=== PATIENT | female | born 1995 | race Caucasian/White ===

== ENCOUNTER 2019-09-28 16:45 | Emergency (ER) | payer MEDICARE, MEDICAID ==
[~2019-09-28] VITALS: Ht 160 cm; Wt 87.5 kg
[~2019-09-28 16:45] MED LIST: ALBU8.5H6; CYCL-331; FLUT1DIS3; GABA-585; HYDR-923; MONT10TA80; NARA1TAB; NORG1TAB6; PRED20TA PO; PROP20TA
[2019-09-28 17:11] VITALS: BP 113/79
[2019-09-28 18:13] LABS: BILIRUBIN,URINE NEG (NEG); CLARITY,URINE CLEAR; COLOR,URINE YELLOW; GLUCOSE,URINE NEG (NEG); NITRITE,URINE NEG (NEG); UROBILINOGEN,URINE 0.2 mg/dL (0.2 mg/dL)
[2019-09-28 18:14] LABS: BACTERIA,URINE MOD /HPF (0-FEW); HYALINE CASTS, URINE OCC /HPF; SQUAMOUS EPITHELIAL CELL,UR FEW /LPF; WBC,URINE 20-40 /HPF (0-4)
[2019-09-28] MEDS ORDERED: SULF1TAB24 PO (18:22)
--- NOTE | 2019-09-28 18:24 | PHYS DOC ---
Past History Past Medical History: Other Additional Past Medical Histor: [id number] DISEASE Past Surgical History: Cholecystectomy, Other Additional Past Surgical Histo: BILAT FOOT SURGERIES Smoking: Non-smoker Alcohol Use: Rarely Drug Use: None Adult General Chief Complaint Chief Complaint: BACK PAIN OR INJURY [facility] HPI Patient is a 24-year-old female presenting with back pain, onset about 3 days ago she does have a history of UTIs in the past she also lifted her son the other day and she was worried that I could increased her pain. No bowel or bladder incontinence no lower extremity numbness weakness or tingling. Pain is dull slowly worsening with time no relief with her multiple agents including hydrocodone and Flexeril Review of Systems Review of Systems Constitutional: Denies fever or chills [] Eyes: Denies change in visual acuity, redness, or eye pain [] HENT: Denies nasal congestion or sore throat [] Respiratory: Denies cough or shortness of breath [] Cardiovascular: No additional information not addressed in HPI [] GI: D Integument: Denies rash or skin lesions [] Neurologic: Denies headache, focal weakness or sensory changes [] Endocrine: Denies polyuria or polydipsia [] All other systems were reviewed and found to be within normal limits, except as documented in this note. Allergies Allergies Allergies Coded Allergies Type Severity Reaction Last Updated Verified duloxetine Allergy Severe "seizures" 06/14/15 Yes adhesive Allergy Intermediate rash 06/14/15 Yes cat dander Allergy Intermediate "I tested positive on an allergy test." 06/14/15 Yes dog dander Allergy Intermediate "I tested positive on an allergy test." 06/14/15 Yes meloxicam Allergy Intermediate "gives me bad migraines" 06/14/15 Yes Uncoded Allergies Type Severity Reaction Last Updated Verified dust Allergy Intermediate "I tested positive on an allergy test." 06/14/15 Physical Exam Physical Exam Constitutional: Well developed, well nourished, no acute distress, non-toxic appearance. [] HENT: Normocephalic, atraumatic, bilateral external ears normal, oropharynx moist, no oral exudates, nose normal. [] Eyes: PERRLA, EOMI, conjunctiva normal, no discharge. [] Neck: Normal range of motion, no tenderness, supple, no stridor. [] Cardiovascular:Heart rate regular rhythm, no murmur [] Lungs & Thorax: Bilateral breath sounds clear to auscultation [] Abdomen: Bowel sounds normal, soft, no tenderness, no masses, no pulsatile masses. [] Skin: Warm, dry, no erythema, no rash. [] Back: No tenderness, bilateral CVA tenderness Extremities: No tenderness, no cyanosis, no clubbing, ROM intact, no edema. [] Neurologic: Alert and oriented X 3, normal motor function, normal sensory function, no focal deficits noted. [] Psychologic: Affect normal, judgement normal, mood normal. [] Current Patient Data Vital Signs Vital Signs Date Time Temp Pulse Resp B/P (MAP) Pulse Ox O2 Delivery O2 Flow Rate FiO2 09/28/19 17:11 97.9 74 18 99 Room Air Lab Results Laboratory Tests Test 09/28/19 17:37 09/28/19 17:40 Urine Collection Type U cath Urine Color Yellow Urine Clarity Clear Urine pH 5.5 Urine Specific [place] <=1.005 Urine Protein Neg (NEG-TRACE) Urine Glucose (UA) Neg mg/dL (NEG) Urine Ketones (Stick) Neg mg/dL (NEG) Urine Blood Mod (NEG) Urine Nitrite Neg (NEG) Urine Bilirubin Neg (NEG) Urine Urobilinogen Dipstick 0.2 mg/dL (0.2 mg/dL) Urine Leukocyte Esterase Mod (NEG) Urine RBC 6-10 /HPF (0-2) Urine WBC 20-40 /HPF (0-4) Urine Squamous Epithelial Cells Few /LPF Urine Bacteria Mod /HPF (0-FEW) Urine Hyaline Casts Occ /HPF Urine Mucus Slight /LPF POC Urine HCG, Qualitative hcg negative (Negative) EKG EKG [] Radiology/Procedures Radiology/Procedures [] Course & Med Decision Making Course & Med Decision Making Pertinent Labs and Imaging studies reviewed. 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 Departure Departure: Impression: Primary Impression: Urinary tract bacterial infections Disposition: HOME, SELF-CARE Condition: STABLE Referrals: PCP,UNKNOWN (PCP) Patient Instructions: Urinary Tract Infection, [id number] Scripts Sulfamethoxazole/Trimethoprim (BACTRIM DS TABLET) 1 Each Tablet 1 TAB PO BID for uti for 10 Days, #20 TAB 0 Refills Prov: RIKY CROCKETT MD 09/28/19 RIKY CROCKETT MD Sep 28, 2019 18:24
== END 2019-09-28 18:32 | disposition home or self-care (01) ==
LOC: ER 16:45
DX: N39.0 Urinary tract infection, site not specified (principal); B96.89 Other specified bacterial agents as the cause of diseases classified elsewhere; Z90.49 Acquired absence of other specified parts of digestive tract; Z88.8 Allergy status to other drugs, medicaments and biological substances; Z91.048 Other nonmedicinal substance allergy status
CPT/HCPCS: 81001; 81025; 99283; P9612

== ENCOUNTER 2019-10-21 19:39 | Emergency (ER) | payer MEDICARE, MEDICAID ==
[~2019-10-21] VITALS: Ht 160 cm; Wt 83.0 kg
[~2019-10-21 19:39] MED LIST changes: +SULF1TAB24 PO
[2019-10-21 19:40] VITALS: BP 110/72
[2019-10-21] MEDS ORDERED: SULF1TAB24 PO (20:29)
[2019-10-21 20:32] LABS: BARBITURATES NEG (NEG); BENZODIAZEPINES NEG (NEG); CANNABINOIDS NEG (NEG); COCAINE NEG (NEG); METHADONE NEG (NEG); OPIATES POS (NEG); PHENCYCLIDINE NEG (NEG)
[2019-10-21 20:36] LABS: AMPHETAMINE/METHAMPHETAMINE NEG (NEG)
[2019-10-21 20:45] LABS: CLARITY,URINE HAZY; COLOR,URINE YELLOW
[2019-10-21 20:46] LABS: BILIRUBIN,URINE NEG (NEG); GLUCOSE,URINE NEG (NEG)
[2019-10-21 20:47] LABS: BACTERIA,URINE FEW /HPF (0-FEW); NITRITE,URINE NEG (NEG); UROBILINOGEN,URINE 2 mg/dL (0.2 mg/dL); WBC,URINE 20-40 /HPF (0-4)
[2019-10-21 20:48] LABS: HYALINE CASTS, URINE FEW /HPF; SQUAMOUS EPITHELIAL CELL,UR MOD /LPF
[2019-10-21] MEDS ORDERED: DIPHTH,PERTUSS(ACELL),TET TOX 0.5 ML DISP.SYRIN. VAX IM ONE ×2 (20:51→21:00)
[2019-10-21] MEDS ORDERED: SMZ/TMP 800/160MG TABLET. PO ONE (21:00)
[2019-10-21] MEDS ORDERED: TETANUS AND DIPHTHERIA TOX/PF 0.5 ML VIAL. VAX IM ONE (21:00)
--- NOTE | 2019-10-21 23:00 | PHYS DOC ---
Past History Past Medical History: Other Additional Past Medical Histor: [id number] DISEASE Past Surgical History: Cholecystectomy, Other Additional Past Surgical Histo: BILAT FOOT SURGERIES, HIP SURGERIES Smoking: Non-smoker Alcohol Use: Rarely Drug Use: None Adult General Chief Complaint Chief Complaint: SKIN PROBLEM...." I got this eye brow ring put in... and now I got an infection... and it getting into my eye lid.... .. I just got it put in on ... " HPI HPI Patient is a 24 year old female who presents with above hx and complaints of infected Lt eyebrow ring. Patient has obvious inflammation of skin in the eyebrow around eyebrow ring and into the upper lid of left eye. No visual changes. Does have adenopathy at lateral angle of eyelid. Patient denies history of previous MR SA infections. 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 Patient does not remember her last tetanus shot. She has extensive dental decay. Significant objective history of fever and chills. Patient denies any history immunosuppression. Review of Systems Review of Systems Constitutional: Subjective fever or chills [] Eyes: Denies change in visual acuity, redness, or eye pain [] HENT: Denies nasal congestion or sore throat []. Patient complaints of infection in left eyebrow and eyelid. History of chronic dental pain and decay Respiratory: Denies cough or shortness of breath [] Cardiovascular: No additional information not addressed in HPI [] GI: Denies abdominal pain, nausea, vomiting, bloody stools or diarrhea [] : Denies dysuria or hematuria [] Musculoskeletal: History of chronic hip and feet pain Integument: Denies rash or skin lesions [] Neurologic: Denies headache, focal weakness or sensory changes [] Endocrine: Denies polyuria or polydipsia [] All other systems were reviewed and found to be within normal limits, except as documented in this note. Family History Family History Charot-Kandi tooth disease Current Medications Current Medications Current Medications Medications (Trade) Dose Ordered Sig/Warner Start Time Stop Time Status Last Admin Dose Admin Diphtheria/ Tetanus/Acell Pertussis (Boostrix) 0.5 ml ONCE ONCE 10/21/19 21:00 10/21/19 21:01 DC 10/21/19 21:00 0.5 ML Tetanus/ Diphtheria Toxoids Adsorbed (Tenivac Vial) 0.5 ml ONCE ONCE 10/21/19 21:00 10/21/19 21:01 Cancel Trimethoprim/ Sulfamethoxazole (Bactrim Ds) 1 tab 1X ONCE 10/21/19 21:00 10/21/19 21:01 DC 10/21/19 21:04 1 TAB Allergies Allergies Allergies Coded Allergies Type Severity Reaction Last Updated Verified duloxetine Allergy Severe "seizures" 06/14/15 Yes adhesive Allergy Intermediate rash 06/14/15 Yes cat dander Allergy Intermediate "I tested positive on an allergy test." 06/14/15 Yes dog dander Allergy Intermediate "I tested positive on an allergy test." Yes meloxicam Allergy Intermediate "gives me bad migraines" 06/14/15 Yes Uncoded Allergies Type Severity Reaction Last Updated Verified dust Allergy Intermediate "I tested positive on an allergy test." 06/14/15 Physical Exam Physical Exam Constitutional: in moderated acute distress, non-toxic appearance. [] HENT: Normocephalic, cellulitis Lt. eye brow as per HPI, bilateral external ears normal, oropharynx moist, no oral exudates, nose normal. []Multiple stent placements- nose. Right upper lip. Lower lip Chin. Eyes: PERRLA, EOMI, conjunctiva normal, no discharge. [] Left eyelid is injected and inflamed, adenopathy at lateral canthus. Neck: Normal range of motion, no tenderness, supple, no stridor. [] Cardiovascular:Heart rate regular rhythm, no murmur [] Lungs & Thorax: Bilateral breath sounds clear to auscultation [] Abdomen: Bowel sounds normal, soft, no tenderness, no masses, no pulsatile masses. [] Umbilicus stud. Old surgery scars. Skin: Warm, dry, no erythema, no rash. [] Back: No tenderness, no CVA tenderness. [] Extremities: Leg and foot tenderness, no cyanosis, no clubbing, ROM intact, no edema. [Multiple scars lower limbs. Limping gait Neurologic: Alert and oriented X 3, normal motor function, normal sensory function, no focal deficits noted. [] Psychologic: Affect anxious, judgement normal, mood normal. [] Current Patient Data Vital Signs Vital Signs Date Time Temp Pulse Resp B/P (MAP) Pulse Ox O2 Delivery O2 Flow Rate FiO2 10/21/19 19:40 97.7 85 16 95 Room Air Lab Results Laboratory Tests Test 10/21/19 19:42 10/21/19 20:00 10/21/19 20:13 Urine Opiates Screen Pos (NEG) Urine Methadone Screen Neg (NEG) Urine Barbiturates Neg (NEG) Urine Phencyclidine Screen Neg (NEG) Urine Amphetamine/Methamphetamine Neg (NEG) Urine Benzodiazepines Screen Neg (NEG) Urine Cocaine Screen Neg (NEG) Urine Cannabinoids Screen Neg (NEG) Urine Ethyl Alcohol Neg (NEG) Urine Collection Type Unknown Urine Color Yellow Urine Clarity Hazy Urine pH 5.5 Urine Specific [place] 1.020 Urine Protein 100 mg/dl (NEG-TRACE) Urine Glucose (UA) Neg mg/dL (NEG) Urine Ketones (Stick) Neg mg/dL (NEG) Urine Blood Mod (NEG) Urine Nitrite Neg (NEG) Urine Bilirubin Neg (NEG) Urine Urobilinogen Dipstick 2 mg/dL (0.2 mg/dL) Urine Leukocyte Esterase Mod (NEG) Urine RBC 6-10 /HPF (0-2) Urine WBC 20-40 /HPF (0-4) Urine Squamous Epithelial Cells Mod /LPF Urine Bacteria Few /HPF (0-FEW) Urine Hyaline Casts Few /HPF POC Urine HCG, Qualitative hcg negative (Negative) EKG EKG [] Radiology/Procedures Radiology/Procedures [] Course & Med Decision Making Course & Med Decision Making Pertinent Labs and Imaging studies reviewed. (See chart for details)- Tetanus updated. Encouraged pt. to remove the eyebrow ring. Pt. to use warm moist salt or episome compresses at least 4 x day. After compresses massage polysporin into cellulitic area. Take Bactrim twice a day. Follow up with primary. Return if any concerns. Impression: 1. Cellulitis 2. New eyebrow ring- may be an additional inflammatory response-( encouraged patient to remove it) 3. Kandi Charcot tooth disease 4. Marked Dental Decay [] Dragon Disclaimer Dragon Disclaimer This electronic medical record was generated, in whole or in part, using a voice recognition dictation system. Departure Departure: Impression: Primary Impression: Cellulitis Disposition: HOME/RESIDENCE PRIOR TO ADM Condition: GUARDED Patient Instructions: Cellulitis, [id number] Additional Instructions: Would remove the eyebrow ring. Massage area with polysporin 4 x day. Moist warm packs with salt water or episome salt x 4 day. Take Bactrim DS twice a day. Keep followup with primary. Scripts Sulfamethoxazole/Trimethoprim (BACTRIM DS TABLET) 1 Each Tablet 1 TAB PO BID for cellulitis for 7 Days, #14 TAB 0 Refills Prov: DAISY BOLAND MD 10/21/19 Antonio Disclaimer This chart was dictated in whole or in part using Voice Recognition software in a busy, high-work load, and often noisy Emergency Department environment. It may contain unintended and wholly unrecognized errors or omissions. Dragon Disclaimer This chart was dictated in whole or in part using Voice Recognition software in a busy, high-work load, and often noisy Emergency Department environment. It may contain unintended and wholly unrecognized errors or omissions. DAISY BOLAND MD Oct 21, 2019 23:00
== END 2019-10-21 21:07 | disposition home or self-care (01) ==
LOC: ER 19:39
DX: L03.211 Cellulitis of face (principal); G60.0 Hereditary motor and sensory neuropathy; K02.9 Dental caries, unspecified; G89.29 Other chronic pain; Z88.8 Allergy status to other drugs, medicaments and biological substances; Z91.048 Other nonmedicinal substance allergy status
CPT/HCPCS: 36415; 80307; 81001; 81025; 87086; 90471; 90715; 99284-25

== ENCOUNTER 2020-01-12 16:22 | Emergency (ER) | payer MEDICAID, MEDICARE, OTHER ==
[~2020-01-12] VITALS: Ht 160 cm; Wt 83.0 kg
[2020-01-12 16:22] VITALS: BP 108/68
--- NOTE | 2020-01-12 16:47 | PHYS DOC ---
Past History Past Medical History: Other Additional Past Medical Histor: [id number] DISEASE Past Surgical History: Cholecystectomy, Other Additional Past Surgical Histo: BILAT FOOT SURGERIES, HIP SURGERIES Smoking: Non-smoker Alcohol Use: Rarely Drug Use: None Adult General Chief Complaint Chief Complaint: TOE PROBLEM HPI HPI Patient is a 24-year-old female who presents with complaint of right second toe pain and injury after stubbing it. Patient states that she thinks she broke the toe. Injury occurred yesterday. Patient states that pain as moderate especially with weightbearing.[] Review of Systems Review of Systems Constitutional: Denies fever or chills [] Respiratory: Denies cough or shortness of breath [] Cardiovascular: No additional information not addressed in HPI [] Musculoskeletal: Complains of right foot/toe pain [] Integument: Denies rash or skin lesions [] Allergies Allergies Allergies Coded Allergies Type Severity Reaction Last Updated Verified duloxetine Allergy Severe "seizures" 06/14/15 Yes adhesive Allergy Intermediate rash 06/14/15 Yes cat dander Allergy Intermediate "I tested positive on an allergy test." 06/14/15 Yes dog dander Allergy Intermediate "I tested positive on an allergy test." 06/14/15 Yes meloxicam Allergy Intermediate "gives me bad migraines" 06/14/15 Yes Uncoded Allergies Type Severity Reaction Last Updated Verified dust Allergy Intermediate "I tested positive on an allergy test." 06/14/15 Physical Exam Physical Exam Constitutional: Well developed, well nourished, no acute distress, non-toxic appearance. [] Cardiovascular:Heart rate regular rhythm, no murmur [] Lungs & Thorax: Bilateral breath sounds clear to auscultation [] Extremities: Examination of right foot demonstrates tenderness to palpation with soft tissue swelling and ecchymosis at the base of the second toe. [] Neurologic: Alert and oriented X 3, no focal deficits noted. [] EKG EKG [] Radiology/Procedures Radiology/Procedures [] Impressions: PROCEDURE: FOOT LEFT 3V 3 view study of the left foot Clinical indications: Injury and pain. FINDINGS: Surgical screws are seen within the first through fifth digits. The interphalangeal joints are fused. No acute fracture or dislocation or lytic process is evident. No plantar spur of the calcaneus is seen. IMPRESSION: No acute osseous abnormality. Electronically signed by: Raymon Parish MD (01/12/2020 4:58 PM) [facility] Course & Med Decision Making Course & Med Decision Making Pertinent Labs and Imaging studies reviewed. (See chart for details) [] Dragon Disclaimer Dragon Disclaimer This electronic medical record was generated, in whole or in part, using a voice recognition dictation system. Departure Departure: Impression: Primary Impression: Contusion of toe of left foot Disposition: HOME, SELF-CARE Condition: STABLE Referrals: PCP,NO (PCP) Patient Instructions: Contusion Problem Qualifiers Primary Impression: Contusion of toe of left foot Encounter type: initial encounter Toe: unspecified toe Qualified Codes: S90.122A - Contusion of left lesser toe(s) without damage to nail, initial encounter YUNI STEVEN Jr. DO Jan 12, 2020 16:47
--- NOTE | 2020-01-12 17:01 | RAD ---
3 view study of the left foot Clinical indications: Injury and pain. FINDINGS: Surgical screws are seen within the first through fifth digits. The interphalangeal joints are fused. No acute fracture or dislocation or lytic process is evident. No plantar spur of the calcaneus is seen. IMPRESSION: No acute osseous abnormality. Electronically signed by: Raymon Parish MD (01/12/2020 4:58 PM) [facility]
== END 2020-01-12 17:20 | disposition home or self-care (01) ==
LOC: ER 16:22
DX: S90.122A Contusion of left lesser toe(s) without damage to nail, initial encounter (principal); Z88.8 Allergy status to other drugs, medicaments and biological substances; W18.49XA Other slipping, tripping and stumbling without falling, initial encounter; Y93.89 Activity, other specified; Y92.89 Other specified places as the place of occurrence of the external cause; Y99.8 Other external cause status
CPT/HCPCS: 73630; 99284

== ENCOUNTER 2020-02-17 11:50 | Emergency (ER) | payer OTHER ==
[~2020-02-17] VITALS: Ht 160 cm; Wt 85.5 kg
[2020-02-17 11:50] VITALS: BP 114/71
[2020-02-17] MEDS ORDERED: CLIN300C8 PO (12:39)
--- NOTE | 2020-02-17 12:39 | PHYS DOC ---
Past History Past Medical History: Other Additional Past Medical Histor: [id number] DISEASE Past Surgical History: Cholecystectomy, Other Additional Past Surgical Histo: BILAT FOOT SURGERIES, HIP SURGERIES Smoking: Non-smoker Alcohol Use: Rarely Drug Use: None Adult General Chief Complaint Chief Complaint: DENTAL PROBLEM HPI HPI 24-year-old female presents with upper dental pain. The patient has a known disorder that causes her to have decaying teeth. She has had infections in the past and had teeth removed. She knows that she needs several of her upper teeth removed but has not had it done yet. She started to feel like she had swelling yesterday and it has increased significantly today. The upper portion of her face is now painful from her upper lip up through her nose. Her gums are very tender to palpation. She thinks they look swollen. She denies fever chills. She has no antibiotic allergies. Review of Systems Review of Systems Constitutional: Denies fever or chills [] Eyes: Denies change in visual acuity, redness, or eye pain [] HENT: Poor dentition, upper gum pain [] Respiratory: Denies cough or shortness of breath [] Cardiovascular: No additional information not addressed in HPI [] GI: Denies abdominal pain, nausea, vomiting, bloody stools or diarrhea [] : Denies dysuria or hematuria [] Musculoskeletal: Denies back pain or joint pain [] Integument: Denies rash or skin lesions [] Neurologic: Denies headache, focal weakness or sensory changes [] Endocrine: Denies polyuria or polydipsia [] All other systems were reviewed and found to be within normal limits, except as documented in this note. Allergies Allergies Allergies Coded Allergies Type Severity Reaction Last Updated Verified duloxetine Allergy Severe "seizures" 06/14/15 Yes adhesive Allergy Intermediate rash 06/14/15 Yes cat dander Allergy Intermediate "I tested positive on an allergy test." 06/14/15 Yes dog dander Allergy Intermediate "I tested positive on an allergy test." 06/14/15 Yes meloxicam Allergy Intermediate "gives me bad migraines" 06/14/15 Yes Uncoded Allergies Type Severity Reaction Last Updated Verified dust Allergy Intermediate "I tested positive on an allergy test." 06/14/15 Physical Exam Physical Exam Constitutional: Well developed, well nourished, no acute distress, non-toxic appearance. [] HENT: Diffuse poor dentition. Swollen, erythematous upper gums, no palpable abscess. Normocephalic, atraumatic, bilateral external ears normal, oropharynx moist, no oral exudates, nose normal. [] Eyes: PERRLA, EOMI, conjunctiva normal, no discharge. [] Neck: Normal range of motion, no tenderness, supple, no stridor. [] Cardiovascular:Heart rate regular rhythm, no murmur [] Lungs & Thorax: Bilateral breath sounds clear to auscultation [] Abdomen: Bowel sounds normal, soft, no tenderness, no masses, no pulsatile masses. [] Skin: Warm, dry, no erythema, no rash. [] Back: No tenderness, no CVA tenderness. [] Extremities: No tenderness, no cyanosis, no clubbing, ROM intact, no edema. [] Neurologic: Alert and oriented X 3, normal motor function, normal sensory funct ion, no focal deficits noted. [] Psychologic: Affect normal, judgement normal, mood normal. [] EKG EKG [] Radiology/Procedures Radiology/Procedures [] Course & Med Decision Making Course & Med Decision Making Pertinent Labs and Imaging studies reviewed. (See chart for details) The patient has very poor dentition. She does appear to have an infection of the gums and/or upper, middle teeth. I will treat her with clindamycin for 7 days. I have advised that she immediately contact a surgeon to have her dental issues addressed. The patient states verbal understanding. She is stable for discharge at this time. [] Dragon Disclaimer Dragon Disclaimer This electronic medical record was generated, in whole or in part, using a voice recognition dictation system. Departure Departure: Impression: Primary Impression: Infected dental caries Disposition: HOME, SELF-CARE Condition: STABLE Referrals: PCP,NO (PCP) Patient Instructions: Dental Abscess, Dental Caries Scripts Clindamycin Hcl (CLINDAMYCIN HCL) 300 Mg Capsule 1 CAP PO TID for dental infection, #21 CAP Prov: FLY ESTRADA DO 02/17/20 FLY ESTRADA DO Feb 17, 2020 12:39
== END 2020-02-17 12:55 | disposition home or self-care (01) ==
LOC: ER 11:50
DX: K02.9 Dental caries, unspecified (principal); K04.7 Periapical abscess without sinus; G60.0 Hereditary motor and sensory neuropathy; Z88.8 Allergy status to other drugs, medicaments and biological substances
CPT/HCPCS: 99283

== ENCOUNTER 2020-05-15 14:18 | Emergency (ER) | payer OTHER ==
[~2020-05-15] VITALS: Ht 160 cm; Wt 81.0 kg
[~2020-05-15 14:18] MED LIST changes: +CLIN300C8 PO
--- NOTE | 2020-05-15 14:47 | PHYS DOC ---
Past History Past Medical History: Other Additional Past Medical Histor: [id number] DISEASE Past Surgical History: Cholecystectomy, Other Additional Past Surgical Histo: BILAT FOOT SURGERIES, HIP SURGERIES Smoking: Non-smoker Alcohol Use: Rarely Drug Use: None General Adult EDM: Chief Complaint: ABDOMINAL PAIN HPI: HPI: Patient is a 24-year-old female presenting to the ED with a chief complaint of diarrhea for 3 days and vomiting started last night and twice today. Patient states that she went out with her family 4 days ago for Father's Day. Patient denies fever, chills, abdominal pain, chest pain, shortness of breath. Patient denies smoking, alcohol use, drug use. 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 Review of Systems: Review of Systems: Constitutional: Denies fever or chills Eyes: Denies change in visual acuity HENT: Denies nasal congestion or sore throat Respiratory: Denies cough or shortness of breath Cardiovascular: Denies chest pain or edema GI: Complains of nausea, vomiting, diarrhea : Denies dysuria Musculoskeletal: Denies back pain or joint pain Neurologic: Denies headache, focal weakness or sensory changes Heart Score: Risk Factors: Risk Factors: DM, Current or recent (<one month) smoker, HTN, HLP, family history of CAD, obesity. Risk Scores: Score 0 - 3: 2.5% MACE over next 6 weeks - Discharge Home Score 4 - 6: 20.3% MACE over next 6 weeks - Admit for Clinical Observation Score 7 - 10: 72.7% MACE over next 6 weeks - Early Invasive Strategies Current Medications: Current Meds: Current Medications Medications (Trade) Dose Ordered Sig/Warner Start Time Stop Time Status Last Admin Dose Admin Dicyclomine HCl (Bentyl) 20 mg 1X ONCE 05/15/20 15:00 05/15/20 15:01 05/15/20 14:41 20 MG Ondansetron HCl (Zofran) 4 mg 1X ONCE 05/15/20 15:00 05/15/20 15:01 05/15/20 14:39 4 MG Sodium Chloride 1,000 ml @ 1,000 mls/hr 1X ONCE 05/15/20 15:00 05/15/20 15:59 05/15/20 14:39 1,000 MLS/HR Allergies: Allergies: Allergies Coded Allergies Type Severity Reaction Last Updated Verified duloxetine Allergy Severe "seizures" 06/14/15 Yes adhesive Allergy Intermediate rash 06/14/15 Yes cat dander Allergy Intermediate "I tested positive on an allergy test." 06/14/15 Yes dog dander Allergy Intermediate "I tested positive on an allergy test." 06/14/15 Yes meloxicam Allergy Intermediate "gives me bad migraines" 06/14/15 Yes Uncoded Allergies Type Severity Reaction Last Updated Verified dust Allergy Intermediate "I tested positive on an allergy test." 06/14/15 Physical Exam: PE: Constitutional: Well developed, well nourished, no acute distress, non-toxic appearance. [] HENT: Normocephalic, atraumatic Eyes: EOMI Neck: Normal range of motion, Supple Cardiovascular:Heart rate regular rhythm Lungs & Thorax: Bilateral breath sounds clear to auscultation [] Abdomen: Bowel sounds normal, soft, no tenderness Extremities: No tenderness, ROM intact Neurologic: Alert and oriented X 3 EKG: EKG: [] Radiology/Procedures: Radiology/Procedures: [] Course & Med Decision Making: Course & Med Decision Making Pertinent Labs reviewed. (See chart for details) Ordered labs, UA, IV fluids, Zofran 4 mg IV. Dragon Disclaimer: Dragon Disclaimer: This electronic medical record was generated, in whole or in part, using a voice recognition dictation system. Departure Departure: Impression: Primary Impression: Vomiting and diarrhea Additional Impression: Hypokalemia Disposition: 01 HOME/RESIDENCE PRIOR TO ADM Condition: STABLE Referrals: PCP,UNKNOWN (PCP) Patient Instructions: Diarrhea, Hypokalemia, Nausea and Vomiting Additional Instructions: Discussed results and plan of care with patient. Patient is instructed to follow up with PCP in one to 2 days. Appropriate discharge instructions given to patient to return to the ED or to seek immediate medical evaluation. Patient is instructed to return to the ED if symptoms worsen or if any concerns. Scripts Ondansetron Hcl (ZOFRAN) 4 Mg Tablet 1 TAB PO Q6HRS for Nausea, #15 TAB Prov: EARNESTINE DUNN E DO 05/15/20 Potassium Chloride (Potassium Chloride) 20 Meq Tablet.er 40 MEQ PO DAILY for Hypokalemia for 2 Days, #4 TAB.SR Prov: GOLLAPALLI,EARNESTINE E DO 05/15/20 Justification of Admission: Justification of Admission: Justification of Admission Dx: EARNESTINE Anton DO May 15, 2020 14:47
[2020-05-15 14:50] LABS: BASO # 0.1 x10^3/uL (0.0-0.2); BASO % 1 % (0-3); EOS # 0.1 x10^3/uL (0.0-0.7); EOS % 1 % (0-3); HEMATOCRIT 40.5 % (36.0-47.0); HEMOGLOBIN 13.5 g/dL (12.0-15.5); LYMPH # 1.6 x10^3/uL (1.0-4.8); LYMPH % 17 % (24-48); MEAN CORPUSCULAR HEMOGLOBIN 29 pg (25-35); MEAN CORPUSCULAR HGB CONC 34 g/dL (31-37); MEAN CORPUSCULAR VOLUME 85 fL (79-100); MONO # 0.3 x10^3/uL (0.0-1.1); MONO % 4 % (0-9); NEUT # 7.3 x10^3uL (1.8-7.7); NEUT % 78 % (31-73); PLATELET COUNT 411 x10^3/uL (140-400); RED BLOOD COUNT 4.75 x10^6/uL (3.50-5.40); RED CELL DISTRIBUTION WIDTH 13.4 % (11.5-14.5); WHITE BLOOD COUNT 9.4 x10^3/uL (4.0-11.0)
[2020-05-15] MEDS ORDERED: IV NORMAL SALINE 1,000ML 1,000 ML IV ONE (15:00)
[2020-05-15] MEDS ORDERED: DICYCLOMINE HCL 20 MG TABLET PO ONE (15:00)
[2020-05-15] MEDS ORDERED: ONDANSETRON PF 4 MG/2 ML VIAL. IVP ONE (15:00)
[2020-05-15 15:10] LABS: ALBUMIN 3.4 g/dL (3.4-5.0); ALBUMIN/GLOBULIN RATIO 0.8 (1.0-1.7); CALCIUM 9.7 mg/dL (8.5-10.1); CREATININE 0.9 mg/dL (0.6-1.0); GFR 76.3; TOTAL BILIRUBIN 0.2 mg/dL (0.2-1.0); TOTAL PROTEIN 7.9 g/dL (6.4-8.2)
[2020-05-15 15:12] LABS: POTASSIUM 2.8 mmol/L (3.5-5.1)
[2020-05-15] MEDS ORDERED: POTASSIUM CHLORIDE 20 MEQ TABLET.ER. PO ONE (15:45)
[2020-05-15 16:20] VITALS: BP 113/69
[2020-05-15 16:39] LABS: BILIRUBIN,URINE NEG (NEG); CLARITY,URINE CLEAR; COLOR,URINE STRAW; GLUCOSE,URINE NEG (NEG)
[2020-05-15 16:40] LABS: BACTERIA,URINE 0 /HPF (0-FEW); NITRITE,URINE NEG (NEG); RBC,URINE OCC /HPF (0-2); SQUAMOUS EPITHELIAL CELL,UR OCC /LPF; UROBILINOGEN,URINE 0.2 mg/dL (0.2 mg/dL)
[2020-05-15] MEDS ORDERED: POTA20TA83 PO (17:02)
[2020-05-15] MEDS ORDERED: ONDA4TAB7 PO (17:11)
== END 2020-05-15 17:06 | disposition home or self-care (01) ==
LOC: ER 14:18
DX: R11.2 Nausea with vomiting, unspecified (principal); R19.7 Diarrhea, unspecified; E87.6 Hypokalemia; Z90.49 Acquired absence of other specified parts of digestive tract; Z98.890 Other specified postprocedural states; Z88.8 Allergy status to other drugs, medicaments and biological substances; Z88.6 Allergy status to analgesic agent; Z91.018 Allergy to other foods; Z79.899 Other long term (current) drug therapy
CPT/HCPCS: 36415; 80053; 81001; 83690; 85025; 87086; 96361; 96374; 99283; J2405; J7030